=== PATIENT | male | born 1995 | race Caucasian/White ===

== ENCOUNTER 2017-12-16 13:42 | Emergency (ER) | payer SELFPAY ==
[~2017-12-16] VITALS: Ht 177.8 cm; Wt 72.6 kg
[2017-12-16] MEDS ORDERED: NKM (13:51)
--- NOTE | 2017-12-16 14:29 | Emergency Room Report ---
History of Present Illness General Chief Complaint: Hypertension Source: Patient Present Illness HPI This patient left prior to evaluation by medical provider. Nursing Documentation-PMH Hx Hypertension: Yes History Of Psychiatric Problem: Yes - ADHD; Bipolar; Schizophrenia Physical Exam Vital Signs Date Time Temp Pulse Resp B/P (MAP) Pulse Ox O2 Delivery O2 Flow Rate FiO2 12/16/17 13:46 98.0 104 19 163/99 96 Room Air 98.1 Medical Decision Making PA Attestation Dr. Pan is my supervising Physician whom patient management has been discussed with. ER Course This patient left prior to evaluation by medical provider. I did not Interview or examine this patient. Last Vital Signs Date Time Temp Pulse Resp B/P (MAP) Pulse Ox O2 Delivery O2 Flow Rate FiO2 12/16/17 13:46 98.0 104 19 163/99 96 Room Air 98.1 Disposition: LEFT W/OUT BEING SEEN Condition: Unknown Laurel Pineda Dec 16, 2017 14:29
[2017-12-16 14:30] VITALS: BP 163/99
== END 2017-12-16 14:30 | disposition left against medical advice (07) ==
LOC: EMR 14:00
DX: I10 Essential (primary) hypertension (principal); Z53.21 Procedure and treatment not carried out due to patient leaving prior to being seen by health care provider
CPT/HCPCS: 99281